=== PATIENT | male | born 1945 | race Caucasian/White ===

== ENCOUNTER 2025-01-31 07:37 | Day surgery (SDC) | payer MEDICARE, BC ==
[~2025-01-31 07:37] MED LIST: Propofol 200 MG/20 ML SDV ONE; fentaNYL 50 MCG/ML SDV ONE
[2025-01-31] MEDS: Lactated Ringers 1,000 ML IV SCH (08:23)
[2025-01-31] MEDS ORDERED: Propofol 200 MG/20 ML SDV ONE (09:49)
== END 2025-01-31 10:58 | disposition home or self-care (01) ==
LOC: JP.SDS 07:37
PROVIDERS: ATTEND Surgery
DX: Z12.11 Encounter for screening for malignant neoplasm of colon (principal); K63.89 Other specified diseases of intestine; R19.5 Other fecal abnormalities; I10 Essential (primary) hypertension; Z79.82 Long term (current) use of aspirin; Z87.891 Personal history of nicotine dependence; Z79.899 Other long term (current) drug therapy
CPT/HCPCS: G0121; J2704; J3010; J7120; 00811-QZ